=== PATIENT | male | born 1980 | race Two or more races ===

== ENCOUNTER 2017-09-16 02:03 | Emergency (ER) | payer MEDICAID ==
[~2017-09-16] VITALS: Ht 157.5 cm; Wt 57.0 kg
[2017-09-16] MEDS ORDERED: SODIUM CHLORIDE 0.9% 1,000 ML IV ONE (02:47)
[2017-09-16] MEDS ORDERED: MAGNESIUM/ALUMINUM HYDROXIDE/SIMETHICONE 30ML UDC PO STA (02:47)
[2017-09-16] MEDS ORDERED: FAMOTIDINE 20MG/2ML VIAL IV STA (02:47)
[2017-09-16] MEDS ORDERED: VISCOUS LIDOCAINE 2% 15 ML UDC PO STA (02:47)
[2017-09-16] MEDS ORDERED: KETOROLAC 30MG/ML VIAL IV STA (02:47)
[2017-09-16 03:37] LABS: CLARITY URINE TURBID (CLEAR); COLOR URINE YELLOW (YELLOW); KETONES URINE 2+ (NEGATIVE); LEUKOCYTE ESTERASE URINE TRACE (NEGATIVE); NITRITE URINE NEGATIVE (NEGATIVE); OCCULT BLOOD URINE 3+ (NEGATIVE); PH URINE 8.5 (4.5-8.0); PROTEIN URINE NEGATIVE (NEGATIVE); SPECIFIC GRAVITY URINE 1.014 (1.005-1.030)
[2017-09-16 03:38] LABS: HEMATOCRIT. 39.1 % (42.0-52.0); HEMOGLOBIN. 13.6 g/dL (14.0-18.0); MEAN CORPUSCULAR HEMOGLOBIN 29.8 pg (28.0-32.0); MEAN CORPUSCULAR VOLUME 85.4 fL (80.0-94.0); MEAN PLATELET VOLUME 7.5 fl (7.4-10.4); PLATELET 374 x1000/uL (130-400); RED BLOOD CELL COUNT 4.58 mill/uL (4.7-6.1); RED CELL DISTRIBUTION WIDTH 12.9 % (11.6-14.6)
[2017-09-16 03:40] LABS: CHLORIDE 103 mEq/L (98-107)
[2017-09-16 03:41] LABS: INR 1.1; PROTHROMBIN TIME 11.1 sec (9.4-11.6)
[2017-09-16 03:50] LABS: ETHANOL BLOOD < 10 mg/dL
[2017-09-16 04:05] LABS: *AMPHETAMINES SCREEN URINE PRESUMTIVE POSITIVE (NEGATIVE); *BARBITURATES SCREEN URINE NEGATIVE (NEGATIVE)
[2017-09-16 04:06] LABS: *BENZODIAZEPINES SCREEN URINE NEGATIVE (NEGATIVE); *COCAINE SCREEN URINE NEGATIVE (NEGATIVE); CANNABINOID URINE SCREEN NEGATIVE (NEGATIVE); METHADONE URINE SCREEN NEGATIVE (NEGATIVE); OPIATES URINE SCREEN NEGATIVE (NEGATIVE); PHENCYCLIDINE URINE SCREEN NEGATIVE (NEGATIVE)
[2017-09-16] MEDS ORDERED: CEFTRIAXONE 1 G PREMIX 50 ML IV NR (04:45)
[2017-09-16] MEDS ORDERED: SODIUM CHLORIDE 0.9% 1000ML BAG (SEPSIS BOLUS) IV NR (04:45)
[2017-09-16] MEDS ORDERED: AZITHROMYCIN 500 MG in DEXT 5% WATER 250 ML IV NR (05:00)
[2017-09-16 05:01] LABS: PLATELET ESTIMATE NORMAL
[2017-09-16 06:01] VITALS: BP 123/88
== END 2017-09-16 06:18 | disposition home or self-care (01) ==
LOC: ER 02:03
DX: N39.0 Urinary tract infection, site not specified (principal); N20.1 Calculus of ureter; D72.829 Elevated white blood cell count, unspecified; F15.10 Other stimulant abuse, uncomplicated; R94.31 Abnormal electrocardiogram [ECG] [EKG]; R31.9 Hematuria, unspecified
CPT/HCPCS: 36415; 74176; 80053; 80305; 81003; 83605; 83690; 85025; 85610; 87040; 93005; 96365; 96368; 96375; 99285; G0482; J0456; J0696; J1885; J3490; J7030; J7060

== ENCOUNTER 2020-06-18 04:00 | Emergency (ER) | payer SELFPAY ==
[~2020-06-18] VITALS: Ht 165.1 cm; Wt 64.0 kg
[2020-06-18] MEDS ORDERED: ONDANSETRON HCL 4MG/2ML INJ IV STA (04:31)
[2020-06-18] MEDS ORDERED: SODIUM CHLORIDE 0.9% 1,000 ML IV ONE (04:45)
[2020-06-18 05:06] LABS: CHLORIDE 105 mEq/L (98-107)
[2020-06-18 05:08] LABS: BASOPHILS % 0.2 % (0.0-2.0); HEMATOCRIT. 41.1 % (42.0-52.0); HEMOGLOBIN. 13.5 g/dL (14.0-18.0); LYMPHOCYTES % 20.9 % (20.0-50.0); MEAN CORPUSCULAR HEMOGLOBIN 29.2 pg (28.0-32.0); MEAN CORPUSCULAR VOLUME 88.7 fL (80.0-94.0); MEAN PLATELET VOLUME 7.4 fl (7.4-10.4); MONOCYTES % 6.8 % (2.0-8.0); NEUTROPHILS % 71.1 % (40.0-76.0); PLATELET 317 x1000/uL (130-400); RED BLOOD CELL COUNT 4.63 mill/uL (4.7-6.1); RED CELL DISTRIBUTION WIDTH 12.9 % (11.6-14.6)
[2020-06-18 05:10] LABS: ETHANOL BLOOD < 10 mg/dL
[2020-06-18] MEDS ORDERED: TOPUD MT (07:16)
[2020-06-18] MEDS ORDERED: ONDA4TAB5 MT (07:16)
[2020-06-18 08:43] VITALS: BP 149/91
[2020-06-18 09:11] LABS: CLARITY URINE CLEAR (CLEAR); COLOR URINE YELLOW (YELLOW); KETONES URINE NEGATIVE (NEGATIVE); LEUKOCYTE ESTERASE URINE NEGATIVE (NEGATIVE); NITRITE URINE NEGATIVE (NEGATIVE); OCCULT BLOOD URINE NEGATIVE (NEGATIVE); PH URINE 7.5 (4.5-8.0); PROTEIN URINE NEGATIVE (NEGATIVE); SPECIFIC GRAVITY URINE 1.012 (1.005-1.030); UROBILINOGEN URINE 0.2 E.U./dL (0.2-1.0)
[2020-06-18 09:28] LABS: *AMPHETAMINES SCREEN URINE PRESUMTIVE POSITIVE (NEGATIVE); *BARBITURATES SCREEN URINE NEGATIVE (NEGATIVE); *BENZODIAZEPINES SCREEN URINE NEGATIVE (NEGATIVE); *COCAINE SCREEN URINE NEGATIVE (NEGATIVE); METHADONE URINE SCREEN NEGATIVE (NEGATIVE)
[2020-06-18 09:29] LABS: CANNABINOID URINE SCREEN NEGATIVE (NEGATIVE); OPIATES URINE SCREEN NEGATIVE (NEGATIVE); PHENCYCLIDINE URINE SCREEN NEGATIVE (NEGATIVE)
== END 2020-06-18 07:10 | disposition home or self-care (01) ==
LOC: ER 04:00
DX: R10.13 Epigastric pain (principal); D64.9 Anemia, unspecified
CPT/HCPCS: 36415; 74176; 80053; 80305; 80320; 81003; 83690; 85025; 93005; 96361; 96374; 99285; J2405; J7030; G0480